=== PATIENT | female | born 1935 | race Caucasian/White ===

== ENCOUNTER 2019-12-30 19:11 | Emergency (ER) | payer MEDICARE ==
[~2019-12-30] VITALS: Ht 165.1 cm; Wt 62.7 kg
[2019-12-30 19:12] VITALS: Ht 165.1 cm; Wt 62.7 kg
[2019-12-30] MEDS ORDERED: AMBIEN5 MG PO (19:14)
[2019-12-30] MEDS ORDERED: COZAAR25 MG PO (19:14)
[2019-12-30] MEDS ORDERED: NORVASC5 MG PO (19:14)
[2019-12-30] MEDS ORDERED: TOPROL XL25 MG PO (19:14)
[2019-12-30 19:38] LABS: BASOPHILS 0.4 % (0-2); EOSINOPHILS 0.6 % (0-7); HEMATOCRIT 39.9 % (36.0-48.0); HEMOGLOBIN 13.5 g/dL (12-16); IMMATURE GRANULOCYTES 0.2 % (0-5); LYMPHOCYTES 26.7 % (15-50); MCH 32.5 pg (26.0-34.0); MCHC 33.8 g/dL (31.0-37.0); MCV 96.1 fL (80.0-100.0); MEAN PLATELET VOLUME 8.8 fL (7.4-10.4); MONOCYTES 6.8 % (2-11); NEUTROPHILS 65.3 % (40-80); PLATELET COUNT 216 10x3/uL (130-400); RBC 4.15 10x6/uL (4.00-5.40); RDW 12.3 % (11.5-14.5); WBC 5.2 10x3/uL (4.8-10.8)
[2019-12-30 19:46] LABS: CALC OSMOLALITY 267 mosm/kg (275-300); CALCIUM 8.8 mg/dL (8.5-10.1); CHLORIDE - SERUM 97 mmol/L (98-107); CREATININE - SERUM 1.1 mg/dL (0.6-1.3); GLUCOSE 115 mg/dL (74-106); POTASSIUM - SERUM 3.9 mmol/L (3.5-5.1); SODIUM 132 mmol/L (136-145); UREA NITROGEN 19 mg/dL (7-18); eGFR NON AFRICAN AMERICAN 50 mL/min (90-120)
[2019-12-30 20:01] LABS: ALKALINE PHOSPHATASE 73 U/L (30-120); ALT (SGPT) 30 U/L (10-68); CKMB 1.6 U/L (0.0-3.6); CREATINE KINASE 72 UL (21-215); MAGNESIUM - SERUM 2.2 mg/dL (1.8-2.4); PROTEIN - SERUM 7.9 g/dL (6.4-8.2); TROPONIN-I < 0.017 ng/mL (0.000-0.060)
[2019-12-30 20:03] LABS: APTT 27.9 SECONDS (22.8-39.4); INR 1.01 (0.85-1.17); PROTIME 13.2 SECONDS (11.6-15.0)
[2019-12-30] MEDS ORDERED: KLONOPIN1 MG PO ×2 (22:35→22:37)
[2019-12-30 22:50] VITALS: BP 141/71
== END 2019-12-30 22:50 | disposition home or self-care (01) ==
LOC: D.ER 19:11
PROVIDERS: Surgery
DX: R91.8 Other nonspecific abnormal finding of lung field (principal); F41.9 Anxiety disorder, unspecified; R06.02 Shortness of breath

== ENCOUNTER 2020-02-12 16:49 | Inpatient (IN) | payer MEDICARE ==
[~2020-02-12] VITALS: Ht 165.1 cm; Wt 63.4 kg
[~2020-02-12 16:49] MED LIST: AMBIEN5 MG PO; COZAAR25 MG PO; KLONOPIN1 MG PO; NORVASC5 MG PO; TOPROL XL25 MG PO
[2020-02-12 17:30] VITALS: BP 153/86
[2020-02-12 18:00] VITALS: BP 112/52
[2020-02-12 18:02] LABS: BASOPHILS 0.4 % (0-2); EOSINOPHILS 0.6 % (0-7); HEMATOCRIT 35.6 % (36.0-48.0); IMMATURE GRANULOCYTES 0.2 % (0-5); MCH 32.4 pg (26.0-34.0); MCHC 33.7 g/dL (31.0-37.0); MCV 96.2 fL (80.0-100.0); MEAN PLATELET VOLUME 8.8 fL (7.4-10.4); MONOCYTES 7.5 % (2-11); NEUTROPHILS 67.3 % (40-80); PLATELET COUNT 248 10x3/uL (130-400); RDW 12.3 % (11.5-14.5); WBC 5.3 10x3/uL (4.8-10.8)
[2020-02-12 18:24] LABS: APTT 24.9 SECONDS (22.8-39.4); INR 0.89 (0.85-1.17)
[2020-02-12 18:28] LABS: CALC OSMOLALITY 268 mosm/kg (275-300); CALCIUM 8.3 mg/dL (8.5-10.1); CARBON DIOXIDE 28.7 mmol/L (21.0-32.0); CHLORIDE - SERUM 100 mmol/L (98-107); CREATININE - SERUM 0.9 mg/dL (0.6-1.3); GLUCOSE 110 mg/dL (74-106); POTASSIUM - SERUM 3.7 mmol/L (3.5-5.1); SODIUM 133 mmol/L (136-145); UREA NITROGEN 19 mg/dL (7-18); eGFR NON AFRICAN AMERICAN 63 mL/min (90-120)
[2020-02-12 18:30] VITALS: BP 127/77
[2020-02-12 18:43] LABS: ALBUMIN 3.2 g/dL (3.4-5.0); ALKALINE PHOSPHATASE 70 U/L (30-120); ALT (SGPT) 24 U/L (10-68); BILIRUBIN - TOTAL 0.33 mg/dL (0.2-1.3); CKMB 1.1 U/L (0.0-3.6); CREATINE KINASE 32 UL (21-215)
--- NOTE | 2020-02-12 18:45 | NUR ---
PT AMBULATORY TO THE RESTROOM WITHOUT ASSISTANCE.
[2020-02-12 18:47] LABS: TROPONIN-I < 0.017 ng/mL (0.000-0.060)
[2020-02-12 19:16] VITALS: BP 127/77
[2020-02-12 19:43] VITALS: BP 109/68
--- NOTE | 2020-02-12 20:00 | NUR ---
PATIENT ARRIVED TO FLOOR. PATIENT IS ALERT AND ORIENTED, RESTING COMFORTABLY IN BED. RESPIRATIONS ARE EVEN AND UNLABORED. NO S/S OF DISTRESS. NO C/O PAIN. CALL LIGHT WITHIN REACH. WILL CPOC.
--- NOTE | 2020-02-12 20:12 | NUR ---
NS @ 75CC HOUR INFUSING UPON TRANSFER ALSO GIRISHM INFUSING A @ 10/HR
[2020-02-12 21:45] VITALS: BP 120/68
[2020-02-13] VITALS (7 sets, daily range): BP systolic 86–134; BP diastolic 53–86; Ht 165.1 cm; Wt 63.4 kg
[2020-02-13 01:34] LABS: CKMB 0.6 U/L (0.0-3.6); CREATINE KINASE 25 UL (21-215); TROPONIN-I < 0.017 ng/mL (0.000-0.060)
--- NOTE | 2020-02-13 03:38 | NUR ---
PATIENT CONVERTED TO NORMAL SINUS. HR IN 50-60. CARDIZEM DRIP STOPPED.
[2020-02-13 05:55] LABS: BASOPHILS 0.5 % (0-2); EOSINOPHILS 0.7 % (0-7); HEMATOCRIT 34.2 % (36.0-48.0); HEMOGLOBIN 11.2 g/dL (12-16); IMMATURE GRANULOCYTES 0.2 % (0-5); LYMPHOCYTES 24.2 % (15-50); MCH 31.5 pg (26.0-34.0); MCHC 32.7 g/dL (31.0-37.0); MCV 96.3 fL (80.0-100.0); MEAN PLATELET VOLUME 8.5 fL (7.4-10.4); MONOCYTES 7.9 % (2-11); NEUTROPHILS 66.5 % (40-80); PLATELET COUNT 222 10x3/uL (130-400); RBC 3.55 10x6/uL (4.00-5.40); RDW 12.3 % (11.5-14.5); WBC 4.3 10x3/uL (4.8-10.8)
[2020-02-13 06:28] LABS: ANION GAP 8.9 mmol/L (8-16); BILIRUBIN - TOTAL 0.45 mg/dL (0.2-1.3); CALCIUM 8.3 mg/dL (8.5-10.1); CARBON DIOXIDE 28.9 mmol/L (21.0-32.0); CREATININE - SERUM 0.8 mg/dL (0.6-1.3); POTASSIUM - SERUM 3.8 mmol/L (3.5-5.1); PROTEIN - SERUM 6.5 g/dL (6.4-8.2)
[2020-02-13 07:49] LABS: CKMB 0.8 U/L (0.0-3.6); CREATINE KINASE 30 UL (21-215); TROPONIN-I < 0.017 ng/mL (0.000-0.060)
--- NOTE | 2020-02-13 08:35 | NUR ---
PT CONVERTED INTO UNCONTROLLED A-FIB BETWEEN 100-130. RESTARTED CARDIZEM AT 10. NS INFUSING @75ML/HR. WILL CTM.
--- NOTE | 2020-02-13 08:37 | NUR ---
RECIEVED VERBAL ORDERS PER FOR 15MG BOLUS CARDIZEM AND TO RESTART DRIP @10.
--- NOTE | 2020-02-13 15:44 | CN ---
PATIENT NAME:SHARON SALGUERO MEDICAL RECORD: [id number] : 39 LOCATION:D. D.2120 ADMIT DATE: 02/12/20 ACCOUNT: [id number] CONSULTING PHYSICIAN: ERIKA MORENO MD REFERRING PHYSICIAN: LOCO OLIVARES MD DATE OF CONSULTATION: 02/13/2020 HISTORY OF PRESENT ILLNESS: An 84-year-old female with history of coronary artery disease, had a history of SVT in the past, it had been quite quiescent up until the last 2 to 3 months, has a diagnosis of lung carcinoma status post mediastinoscopy. Is being evaluated for what sounds like partial pneumonectomy, onset of symptoms last night of heart racing, pounding, noticed it to be irregular, seen in the ER, found to be in fibrillation with RVR. Currently, she has been in sinus rhythm, has had few breakthroughs via telemetry. PAST MEDICAL HISTORY: Includes; 1. History of hypertension. 2. Hyperlipidemia. 3. Supraventricular tachycardia. 4. Osteoarthritis. ALLERGIES: IBUPROFEN, ALPHAGAN. MEDICATIONS: Chronically include metoprolol 25 at bedtime, amlodipine 5 mg p.o. daily. 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 REVIEW OF SYSTEMS: The patient reports easy bruising but reports no swollen glands. The patient reports no fever, no night sweats, no significant weight gain, no significant weight loss. No significant exercise tolerance. The patient reports no dry eyes, no irritation, no vision change. Patient reports no difficulty hearing and no ear pain. Patient reports no frequent nose bleeds or nose and sinus problems. Patient reports on arm pain on exertion. No shortness of breath while lying down. No history of heart murmur. Patient reports no cough, no wheezing or coughing up blood. Patient reports no abdominal pain, no vomiting. Normal appetite. No diarrhea and not vomiting blood. No nausea and no constipation. Patient reports no incontinence. No difficulty urinating. No hematuria. No increased frequency. Patient reports no muscle aches. No weakness, no arthralgias, no back pain. No swelling of the extremities. Patient reports no abnormal mole, no jaundice, no rashes. Reports no loss of consciousness. No weakness and no numbness. No seizures, dizziness, or headaches. The patient reports no depression, no sleep disturbance, feeling safe in a relationship and no alcohol abuse. Patient reports on fatigue. Reports no runny nose or sinus pressure. No itching, no hives, and no frequent sneezing. PHYSICAL EXAMINATION: GENERAL: Pleasant female in no acute distress. VITAL SIGNS: Blood pressure 135/65, pulse 63 and regular. HEENT: Normocephalic, atraumatic. NECK: No bruits are noted. HEART: Regular, II/ systolic ejection murmur. LUNGS: Good air excursion. CONSULT REPORT [id number] SHARON SALGUERO ABDOMEN: Soft, nontender. EXTREMITIES: Pulses are well preserved, 2+ with no edema. NEUROLOGIC: Grossly intact. IMPRESSION AND PLAN: Atrial fibrillation. From a preop standpoint, he usually does 5 METs of activity, probably closer to 9 on a regular basis. We will check echocardiographic study to assess left atrial dimensions, left ventricular function, etc. 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 Given NANDA score, we would need to consider NOAC therapy. Further recommendations based on the above. TRANSINT:[id number] Voice Confirmation ID: [id number] DOCUMENT ID: [id number] ERIAK MORENO MD at 1544 CC: [id number] DICTATION DATE: 02/13/20 08 SLOPE TENDER: 02/13/20 1343 ADM IN [facility] [address] [place] [address]
--- NOTE | 2020-02-13 19:32 | NUR ---
RECIEVED IN REPORT FROM DAY SHIFT NURSE THAT DR HAYES HAD MENTIONED ASKING PRIMARY CARE FOR AN ORDER FOR THE PT TO HAVE A LOW DOSE OF ATIVAN FOR HER ANXIETY, UPON ROUNDS PT ASKED IF DR HAYES ORDERED HER ANY ATIVAN TO HELP CALM HER NERVES. AFTER LOOKING AT MEDICATION ORDERS, ATIVAN HAD NOT BEEN ORDERED. PAGE OUT TO PRIMARY.
--- NOTE | 2020-02-13 23:58 | NUR ---
PT ATTEMPTING TO GET OUT OF BED, PT ASKING FOR HER MOTHER AND ASKING WHERE SHE IS. ASSISTED BACK TO BED AND ATTEMPTED TO REORIENT PT. BED LOW, CL IN REACH BED ALARM ON.
[2020-02-14 00:14] VITALS: BP 121/64
--- NOTE | 2020-02-14 00:26 | NUR ---
NOTIIFED BY MT THAT PTS HR IS 56 AND STAYING BELOW 60 FOR A LONG AMOUNT OF TIME, CARDIZEM DRIP DROPPED DOWN TO 5 CC/HR.
--- NOTE | 2020-02-14 04:40 | NUR ---
BED ALARM SOUNDING, UPON ENTERING ROOM, PT GETTING UP OUT OF BED, PT STILL VERY CONFUSED, UNAWARE OF WHERE SHE IS, WHAT SHE IS DOING HERE AND ASKING WHERE HER MOTHER IS. ASSIST PT TO BR AND BACK TO BED. ATTEMPTED TO RE-ORIENT PT.
[2020-02-14 05:35] VITALS: BP 111/64
[2020-02-14 09:40] VITALS: BP 128/67
--- NOTE | 2020-02-14 10:52 | EC ---
PATIENT:SHARON SALGUERO DATE OF SERVICE: 02/12/20 SEX: F MEDICAL RECORD: [id number] DATE OF : 37 LOCATION:D.M2 D.212 AGE OF PATIENT: 84 ADMISSION DATE: 02/12/20 REFERRING PHYSICIAN: INTERPRETING PHYSICIAN: ERIKA MORENO MD ECHOCARDIOGRAM REPORT ECHO CHARGES 4 ECHO COMPLETE Date: 02/13/20 CLINICAL DIAGNOSIS: AFIB ECHOCARDIOGRAPHIC MEASUREMENTS (adult normal given) AC root (d.<3.7cm) 2.3 cm LV Septum d (<1.2 cm> 0.5 cm Valve Excursion 1.6 cm LV Septum (systole) 0.9 cm Left Atria (s.<4.0cm> 2.5 cm LVPW d(<1.2cm) 0.9 cm RV (d.<2.3cm) 1.5 cm LVPW (sytole) 1.3 cm LV diastole(<5.6CM) 7.3 cm MV E-F(>70mm/sec) cm LV systole 6.2 cm LVOT Diameter 1.8 cm MV exc.(>10mm) cm Est.ejection fraction (50-75%) % DOPPLER: LVIT cm/sec A 99 cm/sec E cm/sec LA cm/sec RVSP 31.0 mmHg LVOT 79 cm/sec AOP1/2T m/s Asc. Ao 115 cm/sec RVOT 67 cm/sec RA cm/sec PA 67 cm/sec AV Gradient Peak 5.3 mmHg AV Mean 3.2 mmHg AV Area 2.0 cm MV Gradient Peak 5.3 mmHg MV Mean 2.7 mmHg MV Area cm COMMENTS: Quality Control Coordinator: Brandon [facility] Cloth Napping Supervisor: 3 Dr. Pelletier TAPE# PACS Pericardial Effusion Y DATE OF SERVICE: Adequate 2D, color flow imaging, spectral Doppler, and M-Mode. No LVH. LV internal dimensions are normal. Wall motion is normal. EF is greater than or equal to 55%. Aortic valve is tricuspid. No evidence of stenosis by Doppler interrogation. Left atrium is normal. Mitral valve shows no prolapse. Trace MR. Right-sided chambers are grossly normal. Trace TR. TRANSINT:[id number] Voice Confirmation ID: [id number] DOCUMENT ID: [id number] ECHOCARDIOGRAM REPORT [id number] SHARON SALGUERO ERIKA MORENO MD at 1052 CC: [id number] DICTATION DATE: 02/13/20 1435 ONCOLOGY REP SPECIALIST: 02/13/20 1601 ADM IN [place] [id number] [place] [address]
[2020-02-14 13:31] VITALS: BP 128/67
--- NOTE | 2020-02-14 15:28 | NUR ---
PT'S IV PUMP WAS GOING OFF FOR APPROXIMATELY 5-6 MINUTES WHILE I WAS DISCHARGING A PATIENT IN ANOTHER ROOM. UPON ENTERING THE PT'S ROOM, SHE WAS FRANTIC STATING "THIS THING HAS BEEN GOING OFF AND NOW I AM HAVING A PANIC ATTACK." THE NORMAL SALINE THAT WAS INFUSING @KVO HAD COMPLETED ITS INFUSION THEREFORE I TURNED THE PUMP OFF WELL THE CARDIZEM THAT HAD BEEN INFUSING R/T PT HEART RATE BEING BETWEEN 50-65. PT WAS VERY APPREHENSIVE THAT I, ALONG WITH OTHER NURSES LEARN FROM THIS EXPERIENCE ABOUT ME NOT BEING ABLE TO FIX HER INFUSION PUMP ALTHOUGH IT DID NOT AFFECT THE PATIENT, HER CARE, OR SAFETY IN ABSOLUTELY ANY WAY. THE PUMP SIMPLY SWITCHING FROM INFUSING TO COMPLETE SET THE PUMP OFF WHICH IN TURN CAUSED THE PATIENT TO PANIC. PATIENT HAS BEEN ERADIC AND ANXIOUS THE MAJORITY OF THE DAY PT REFUSED TO TAKE THE PRN ATIVAN. REASSURED THE PATIENT THAT I WAS SIMPLY ASSISTED ANOTHER PATIENT AND WAS NOT ABLE TO TEND TO THE INFUSION PUMP QUICKLY I WOULD HAVE LIKED AND THAT I APOLOGIZED. THE PATIENT CONTINUED TO BE ARGUMENTATIVE IN SPITE OF MY EFFORTS TO REASSURE AND INSTRUCT HER. SHER MAY NOTIFIED.
[2020-02-14 16:20] LABS: BASOPHILS 0.4 % (0-2); EOSINOPHILS 0.4 % (0-7); HEMATOCRIT 34.2 % (36.0-48.0); HEMOGLOBIN 11.2 g/dL (12-16); IMMATURE GRANULOCYTES 0.2 % (0-5); LYMPHOCYTES 23.5 % (15-50); MCH 31.9 pg (26.0-34.0); MCHC 32.7 g/dL (31.0-37.0); MCV 97.4 fL (80.0-100.0); MEAN PLATELET VOLUME 8.5 fL (7.4-10.4); NEUTROPHILS 67.5 % (40-80); PLATELET COUNT 241 10x3/uL (130-400); RBC 3.51 10x6/uL (4.00-5.40); RDW 12.4 % (11.5-14.5)
[2020-02-14 16:27] LABS: WBC 5.4 10x3/uL (4.8-10.8)
[2020-02-14 16:43] LABS: ANION GAP 14.8 mmol/L (8-16); CALCIUM 8.2 mg/dL (8.5-10.1); CARBON DIOXIDE 22.1 mmol/L (21.0-32.0); POTASSIUM - SERUM 3.9 mmol/L (3.5-5.1)
[2020-02-14 16:44] LABS: CREATININE - SERUM 1.3 mg/dL (0.6-1.3)
[2020-02-14 18:56] VITALS: BP 112/56
[2020-02-14 20:00] VITALS: BP 120/84
--- NOTE | 2020-02-14 20:46 | NUR ---
HS MEDS GIVEN WITH FRESH ICE WATER, CARDIZEM DRIP RESTARTED AT 5 CC/HR, PTS HR 123 UNCONTROLLED A FIB ON TELEMETRY.
--- NOTE | 2020-02-14 23:04 | NUR ---
PT OPENED DOOR AND YELLED FOR HELP, THIS NURSE AND CHARGE NURSE ENTERED ROOM TO ASSIST PT. PT VERY CONFUSED, NOT SURE WHERE SHE IS, SHES ASKING FOR HER NEIGHBOR AND ASKING FOR A PAIR OF SCISSORS TO CUT OFF HER SHIRT BECUASE HER SHIRT IS ALL TANGLED UP IN WIRES ( IV TUBING AND TELEMETRY). ASSISTED PT TO BR AND THEN BACK TO BED. ATTEMPTED TO REORIENT PT, EXPLAINED TO PT THAT SHE IS AT [facility], AND IS HERE TO HAVE HER HEART MONITORED. PT STATED THAT SHE UNDERSTANDS AND KNOWS THAT SHE IS CONFUSED BUT STILL NEEDS THAT PAIR OF SCISSORS TO CUT OFF ALL THE WIRES THAT ARE TANGLED UP AROUND HER. PTS OLGA IS NOW CALLING HER ON HER CELL PHONE, NURSE LEFT THE ROOM SO PT CAN SPEAK WITH NEIGHBOR, DOOR LEFT OPEN TO MONIOR CLOSELY, BED ALARM ON. CL IN REACH.
[2020-02-15] VITALS: BP 130/79
--- NOTE | 2020-02-15 03:53 | NUR ---
I have reviewed this patient and I concur with the Shift Assessment completed by the Licensed Practical Nurse today this shift.
[2020-02-15 04:00] VITALS: BP 108/61
--- NOTE | 2020-02-15 04:43 | NUR ---
UP WITH ASSIST TO BR, PT STILL CONFUSED ABOUT WHERE SHE IS AND WHAT SHE IS DOING IN THE HOSPITAL.
[2020-02-15 06:22] LABS: BASOPHILS 0.4 % (0-2); EOSINOPHILS 0.6 % (0-7); HEMATOCRIT 33.4 % (36.0-48.0); IMMATURE GRANULOCYTES 0.2 % (0-5); LYMPHOCYTES 25.5 % (15-50); MCH 31.5 pg (26.0-34.0); MCHC 32.9 g/dL (31.0-37.0); MCV 95.7 fL (80.0-100.0); MEAN PLATELET VOLUME 8.5 fL (7.4-10.4); MONOCYTES 6.7 % (2-11); NEUTROPHILS 66.6 % (40-80); PLATELET COUNT 261 10x3/uL (130-400); RBC 3.49 10x6/uL (4.00-5.40); RDW 12.3 % (11.5-14.5); WBC 5.1 10x3/uL (4.8-10.8)
[2020-02-15 06:43] LABS: ANION GAP 13.1 mmol/L (8-16); CALCIUM 8.6 mg/dL (8.5-10.1); CARBON DIOXIDE 24.5 mmol/L (21.0-32.0); POTASSIUM - SERUM 3.6 mmol/L (3.5-5.1)
[2020-02-15 06:44] LABS: CREATININE - SERUM 0.9 mg/dL (0.6-1.3)
[2020-02-15 09:46] VITALS: BP 122/62
[2020-02-15] MEDS ORDERED: CARDIZEM60 MG PO (12:03)
--- NOTE | 2020-02-15 12:21 | NUR ---
COTY STOPPED @1200 PER LANIE MAY REQUEST. PT NOW IN CONTROLLED A-FIB @60. WILL CTM.
[2020-02-15] MEDS ORDERED: AMIODARONE HCL200 MG PO (12:28)
--- NOTE | 2020-02-15 13:05 | NUR ---
PT DISCHARGED HOME VIA WHEELCHAIR WITH FAMILY. TELEMETRY REMOVED AND RETURNED. PT SIGNED PROPER DISCHARGE INSTRUCTIONS AND REMOVED ALL VALUABLES FROM THE ROOM. PIV REMOVED WITH CATHETER TIP FULLY INTACT WITH CATHETER TIP FULLY INTACT.
== END 2020-02-15 13:06 | disposition home or self-care (01) | DRG 309 ==
LOC: D.ER 16:49 → D.M2 19:06
PROVIDERS: Family Medicine; ADMIT Family Medicine; ATTEND Family Medicine
DX: I48.20 Chronic atrial fibrillation, unspecified (principal); E87.1 Hypo-osmolality and hyponatremia; I10 Essential (primary) hypertension; E78.5 Hyperlipidemia, unspecified; I47.1 Supraventricular tachycardia; D64.9 Anemia, unspecified; F41.9 Anxiety disorder, unspecified; Z85.118 Personal history of other malignant neoplasm of bronchus and lung; R91.8 Other nonspecific abnormal finding of lung field